=== PATIENT | female | born 1945 | race Caucasian/White ===

== ENCOUNTER 2017-04-21 06:51 | Inpatient (IN) | payer MEDICARE, SELFPAY ==
[2017-04-21] VITALS (27 sets, daily range): BP systolic 110–222; BP diastolic 42–124; PULSE 60–94; RESP 16–23; TEMP 36.2–36.9; O2SAT 92–100; BMI 29.2; BMI 31.2
--- NOTE | 2017-04-21 | IR_ITS ---
CARDIAC CATHETERIZATION DATE OF CATHETERIZATION:04/21/2017 9:30 AM PROCEDURES: 1. Left heart catheterization 2. Left ventriculogram 3. Selective coronary angiogram 4. Drug-eluting stent deployment to the proximal right coronary artery INDICATION FOR TEST: 1. Acute non-ST elevation myocardial infarction 2. Coronary artery disease Informed consent was obtained prior to the procedure. COMPLICATIONS: None Clinical history: Patient presents to the emergency department with abnormal EKG and positive troponins with ongoing chest pain. Because of the clinical presentation patient was taken to the cardiac catheter lab for rapid diagnostic angiography. Following the emergency department she received 180 mg of Brilinta along with 100 units per kilogram of heparin. By the time she arrived in the [facility] her ST elevation and resolved as did her chest pain. ESTIMATED BLOOD LOSS: Less than 10 ml. TECHNIQUE: One percent lidocaine used to anesthetize the right anterior aspect of the wrist. The right radial artery was accessed via the Seldinger technique. A 6 Salv[place] sheath was placed in the right radial artery. 2.5 mg of verapamil, 800 mcg of nitroglycerin were given through the arterial sheath. The trap catheter was also used to perform left heart catheterization left ventriculogram and selective coronary angiogram. An ACT measured 297 seconds. The defect was identified right coronary artery which is presumed to be the culprit for patient's acute coronary syndrome. Presumably the heparin caused disillusion of the thrombus in the interim from being in the emergency department to the [facility]. Because of this the guide catheter was used intubate the right coronary artery and the BMW wire was used to traverse the stenosis. A 2.5 x 22 mm resolute Hernandez stent was deployed at 17 rufina reducing the stenosis to 0%. The end of the procedure the sheath was removed good hemostasis was achieved using TR banding patient was transferred to the postop holding area in stable condition ANGIOGRAPHIC RESULTS: 1. The left main artery normal 2. The left anterior descending artery has proximal 20% stenoses immediately after the first septal tower supervisor. Prior to the first diagonal artery there is a concentric 30-40% stenosis with a mid vessel 30% stenosis and a 40% stenosis along a tortuous bend. 3. The circumflex artery is a large dominant vessel and has mild 5-10% proximal and mid vessel luminal irregularities 4. The right coronary artery is a nondominant yet still large vessel with a proximal hazy 60% stenosis presumed to be the culprit for the aborted this elevation myocardial infarction. There is a mid vessel 20-30% stenosis and a distal 30% stenoses 5. The ROSS ventriculogram reveals normal 65% 6. The left ventricular end-diastolic pressure 20 mmHg IMPRESSION: 1. Acute coronary syndrome with the presumptive lesion being the proximal right coronary artery 2. Successful stenting of the proximal right coronary artery culprit lesion reduced to 0% with 1 drug-eluting stent 3. Normal ejection fraction 4. Mildly elevated LVEDP PLAN: 1. Brilinta and aspirin for one year 2. LDL less than 55 3. Cardiac rehabilitation 4. Avoidance of tobacco products 5. Risk factor modification 6. Patient would likely benefit from low dose alprazolam to be used when necessary especially during the services for this patient's mother which is scheduled for tomorrow
--- NOTE | 2017-04-21 07:12 | XR_ITS ---
XR chest 2V HISTORY: ITS.REASON: chest pain ORDERING PHYSICIAN: PATIENT AGE: 71 years COMPARISON: 11/04/2010 FINDINGS: Cardiac size is upper limits of normal. No CHF. No lobar consolidation or collapse. No acute bony anomalies. IMPRESSION: Borderline cardiomegaly otherwise negative
[2017-04-21 07:22] LABS: Basophils # 0.1 K/mm3 (0-0.2); Basophils % 0.7 % (0.1-2.0); Eosinophils # 0.3 K/mm3 (0.0-0.4); Eosinophils % 3.6 % (0.1-12.0); Hematocrit 47.7 % (37.0-47.0); Hemoglobin 15.5 g/dL (12.2-16.2); Lymphocytes # 3.2 K/mm3 (0.7-4.5); Lymphocytes % 37.8 K/mm3 (10-50); Mean Corpuscular HGB Conc 32.6 g/dL (31.8-35.4); Mean Corpuscular Hemoglobin 28.3 pg (27.0-31.2); Mean Corpuscular Volume 86.9 fl (81-99); Mean Platelet Volume 7.9 fl (7.4-10.4); Monocytes # 0.5 K/mm3 (0.1-1.0); Monocytes % 6.2 % (1.7-9.3); Neutrophils # 4.4 K/mm3 (1.8-7.8); Neutrophils % 51.8 % (37.0-80.0); Platelet Count 422 K/mm3 (142-424); Red Blood Count 5.49 M/mm3 (4.20-5.40); Red Cell Distribution Width 12.6 % (11.5-17.5); White Blood Count 8.5 K/mm3 (4.8-10.8)
[2017-04-21 07:49] LABS: Anion Gap 13.2 mEq/L (5-15); Blood Urea Nitrogen 9 mg/dL (7-18); Carbon Dioxide 28 mmol/L (21.0-32.0); Chloride 100 mmol/L (98-107); Creatinine Clearance Estimated 55 mL/min (0-300); Creatinine,Serum 1.12 mg/dL (0.55-1.02); Estimated Glomerular Filt Rate 48 ml/min (>60); GFR (African American) 58 ML/MIN (>60); Glucose 126 mg/dL (74-106); Potassium 3.2 mmoL/L (3.5-5.1); Sodium 138 mmol/L (136-145)
--- NOTE | 2017-04-21 07:51 | PC.NURSE ---
INFORMED DR. CARTAGENA OF CRITICAL TROPONIN 1.95.
--- NOTE | 2017-04-21 07:52 | PC.NURSE ---
DR. CARTAGENA SPEAKING WITH DR. LOPEZ.
[2017-04-21 07:55] LABS: Troponin I 1.95 ng/ml (0.00-0.06)
--- NOTE | 2017-04-21 07:58 | PC.NURSE ---
[employer]OB RETENTION SPECIALIST STAFF NOTIFIED OF PT PER DR. LOPEZ REQUEST. PER DR. CARTAGENA PT TO STAY IN ER UNTIL DR. LOPEZ IS IN HOUSE.
--- NOTE | 2017-04-21 08:00 | PC.NURSE ---
CONTACTED PHARMACY R/T HEPARIN DOSING, ER ORDERED HEPARIN IV 100MG/KG ONE TIME. SPOKE WITH MIRACLE WHO STATED TO GIVE PT HEPARIN 7000 MG IV ONCE.
--- NOTE | 2017-04-21 08:01 | HMH.EDCP ---
ED Disposition Clinical Impression: Non-STEMI (non-ST elevated myocardial infarction) Disposition: Admitted As Inpatient Condition on Discharge: Good Referrals: Adrian Quintero MD [Primary Care Provider] - - Critical Care Critical Care Time: No Attestation: On 04/21/17, the high probability of a clinically significant, sudden or life threatening deterioration of the following system(s) required my full and direct attention, intervention and personal management. The time I documented below is in addition to time spent performing reported procedures but includes the following listed in this critical care notation. Medical Decision Making - Medical Records Medical records reviewed: Yes: I reviewed the patient's medical records. Vital Signs: 04/21/17 06:54 Temperature 97.9 F Temperature Source Oral Pulse Rate [Left Radial] 89 Respiratory Rate 18 Blood Pressure [Right Arm] 197/100 Blood Pressure Mean [Right Arm] 132 Blood Pressure Source [Right Arm] Automatic Cuff Blood Pressure Position [Right Arm] Sitting 02 Sat by Pulse Oximetry 97 Oxygen Delivery Method Room Air - Lab Data Lab results reviewed: Yes: I reviewed the patient's lab results. Lab Results 04/21/17 07:15: WBC 8.5, RBC 5.49 H, Hgb 15.5, Hct 47.7 H, MCV 86.9, MCH 28.3, MCHC 32.6, RDW 12.6, Plt Count 422, MPV 7.9, Neut % (Auto) 51.8, Lymph % (Auto) 37.8, [place] % (Auto) 6.2, Eos % (Auto) 3.6, Baso % (Auto) 0.7, Neut # (Auto) 4.4, Lymph # (Auto) 3.2, [place] # (Auto) 0.5, Eos # (Auto) 0.3, Baso # (Auto) 0.1 04/21/17 07:15: Sodium 138, Potassium 3.2 L, Chloride 100, Carbon Dioxide 28, Anion Gap 13.2, BUN 9, Creatinine 1.12 H, Estimated Creat Clear 55, Estimated GFR 48 L, Est GFR ( Amer) 58 L, Glucose 126 H, Troponin I 1.95 H Result diagrams: 04/21/17 07:15 04/21/17 07:15 Orders (Tests/Meds): ED MEDICATIONS Generic Name Dose Route Start Last Admin Trade Name Freq PRN Reason Stop Dose Admin Nitroglycerin 0.4 mg 04/21/17 07:11 Nitrostat 0.4mg Sl Tablet SL 04/22/17 07:12 [id number] PRN Chest Pain Discontinued Medications Generic Name Dose Route Start Last Admin Trade Name Dillon PRN Reason Stop Dose Admin Aspirin 324 mg 04/21/17 07:11 04/21/17 07:25 Aspirin 81mg Chewable Tablet PO 04/21/17 07:12 324 mg ONCE ONE Administration Heparin Sodium (Porcine) 7,000 unit 04/21/17 07:59 Heparin Sodium 5,000 Units/Ml Vial IV 04/21/17 08:00 ONCE ONE Ticagrelor 180 mg 04/21/17 07:59 Brilinta 90mg Tablet PO 04/21/17 08:00 ONCE ONE ORDERS Category Date Time Status XR chest 2V Stat Exams 04/21/17 07:12 Taken Cardiac Enzymes Stat Lab 04/21/17 07:25 Ordered ECG Request by /Francine Stat Y 04/21/17 07:12 Stop Req - Radiology Data #1 Image(s): Chest Image Reviewed: Yes I reviewed the patient's radiology image Preliminary Findings: Abnormal (cm) - ECG Data Tracing #1 I reviewed this ECG and interpreted as documented below: Ischemic changes: non-specific ST-T wave changes - Physician Consults Physician Consulted: liya Reason -: Admission - Avi Inquiry Pt receiving controlled substance: No Chest Pain HPI - General Chief Complaint: Chest Pain Stated Complaint: chest pain Time Seen by Provider: 04/21/17 08:01 Mode of Arrival: Ambulatory Source of Information: Patient, Spouse, Medical Record Limitations: No Limitations Description of Symptoms (Recalled from ER Triage Doc. by RN): chest pain and anxiety following in family - History of Present Illness HPI narrative: onset of chest pain with rad lt upper ext which started yesterday MD complaint: chest pain indicative of cardiac Onset (ago): day(s) Duration: constant Activity at onset: during rest Pain location: left chest Severity: moderate Quality: dull Relieving factors: nothing Exacerbating factors: nothing Risk Factors for CAD: Hypertension, Family Hx of CAD Treatments prior t
--- NOTE | 2017-04-21 08:05 | PC.NURSE ---
KALPANA BOUDREAUX SPOKE WITH DR. FORREST AT THIS TIME.
--- NOTE | 2017-04-21 08:05 | ED_ITS ---
ED Disposition Clinical Impression: Non-STEMI (non-ST elevated myocardial infarction) Disposition: Admitted As Inpatient Condition on Discharge: Good Referrals: Adrian Quintero MD [Primary Care Provider] - - Critical Care Critical Care Time: No Attestation: On 04/21/17, the high probability of a clinically significant, sudden or life threatening deterioration of the following system(s) required my full and direct attention, intervention and personal management. The time I documented below is in addition to time spent performing reported procedures but includes the following listed in this critical care notation. Medical Decision Making - Medical Records Medical records reviewed: Yes: I reviewed the patient's medical records. Vital Signs: 04/21/17 06:54 Temperature 97.9 F Temperature Source Oral Pulse Rate [Left Radial] 89 Respiratory Rate 18 Blood Pressure [Right Arm] 197/100 Blood Pressure Mean [Right Arm] 132 Blood Pressure Source [Right Arm] Automatic Cuff Blood Pressure Position [Right Arm] Sitting 02 Sat by Pulse Oximetry 97 Oxygen Delivery Method Room Air - Lab Data Lab results reviewed: Yes: I reviewed the patient's lab results. Lab Results 04/21/17 07:15: WBC 8.5, RBC 5.49 H, Hgb 15.5, Hct 47.7 H, MCV 86.9, MCH 28.3, MCHC 32.6, RDW 12.6, Plt Count 422, MPV 7.9, Neut % (Auto) 51.8, Lymph % (Auto) 37.8, [place] % (Auto) 6.2, Eos % (Auto) 3.6, Baso % (Auto) 0.7, Neut # (Auto) 4.4 , Lymph # (Auto) 3.2, [place] # (Auto) 0.5, Eos # (Auto) 0.3, Baso # (Auto) 0.1 04/21/17 07:15: Sodium 138, Potassium 3.2 L, Chloride 100, Carbon Dioxide 28, Anion Gap 13.2, BUN 9, Creatinine 1.12 H, Estimated Creat Clear 55, Estimated GFR 48 L, Est GFR ( Amer) 58 L, Glucose 126 H, Troponin I 1.95 H Result diagrams: 04/21/17 07:15 04/21/17 07:15 Orders (Tests/Meds): ED MEDICATIONS Generic Name Dose Route Start Last Admin Trade Name Freq PRN Reason Stop Dose Admin Nitroglycerin 0.4 mg 04/21/17 07:11 Nitrostat 0.4mg Sl Tablet SL 04/22/17 07:12 Q5MINP PRN Chest Pain Discontinued Medications Generic Name Dose Route Start Last Admin Trade Name Dillon PRN Reason Stop Dose Admin Aspirin 324 mg 04/21/17 07:11 04/21/17 07:25 Aspirin 81mg Chewable Tablet PO 04/21/17 07:12 324 mg ONCE ONE Administration Heparin Sodium (Porcine) 7,000 unit 04/21/17 07:59 Heparin Sodium 5,000 Units/Ml Vial IV 04/21/17 08:00 ONCE ONE Ticagrelor 180 mg 04/21/17 07:59 Brilinta 90mg Tablet PO 04/21/17 08:00 ONCE ONE ORDERS Category Date Time Status XR chest 2V Stat Exams 04/21/17 07:12 Taken Cardiac Enzymes Stat Lab 04/21/17 07:25 Ordered ECG Request by /Francine Stat Y 04/21/17 07:12 Stop Req - Radiology Data #1 Image(s): Chest Image Reviewed: Yes I reviewed the patient's radiology image Preliminary Findings: Abnormal (cm) - ECG Data Tracing #1 I reviewed this ECG and interpreted as documented below: Ischemic changes: non-specific ST-T wave changes - Physician Consults Physician Consulted: liya Reason -: Admission - Avi Inquiry Pt receiving controlled substance: No Chest Pain HPI - General Chief Comp
--- NOTE | 2017-04-21 08:09 | PC.NURSE ---
ROBERT ADAM AT BS
--- NOTE | 2017-04-21 08:22 | CA_ITS ---
PROCEDURE: 2-D M-mode and color Doppler study INDICATIONS FOR THE TEST: Chest painX COPD Heart Murmur Tobacco SmokingEX Palpitations Fatigue Syncope Edema HypertensionXDiabetes Mellitus Rheumatic Fever SOB PIKE Obesity HyperlipidemiaX Family History HD Additional History PATIENT INFORMATION HEIGHT: 63 WEIGHT:170 GENDER: Female B/P:110/70 2-D/M-MODE INTERPRETATION: 2-D MEASUREMENTS OBSERVED VALUES IN CMS Right Ventricular Dimension (RVDd) 1.2 Interventricular Septum (Thickness)(IVsd) 1.7 Left Ventricular Internal Dimensions(LVIDd) 4.6 Left Ventricular Posterior Wall (Thickness)(LVPWd) 1.6 Aortic Root 2.8 Aortic Cusp Separation 1.5 Left Atrial Dimensions (LAD) 3.8 2D 1. Left atrium is mildly enlarged, left ventricle is normal size, there is mild concentric left ventricular hypertrophy present, visually estimated ejection fraction approximately 40%, there is marked hypokinesis involving mid to distal septum, anterior, anteroapical and apical wall. 2. The right atrium and right ventricle are normal size and contractility. 3. The aortic valve is minimally thickened and fibrosed. 4. The mitral and tricuspid valve leaflets are minimally thickened. 5. The pulmonic valve is poorly visualized. 6. No significant pericardial effusion noted. DOPPLER INTERROGATION: Doppler interrogation of the aortic, mitral and tricuspid valve reveals presence of mild mitral and tricuspid regurgitation, tricuspid regurgitant jet velocity is insufficient for calculation of the right ventricular systolic pressure, diastolic parameters are inconclusive. CONCLUSION: 1. Mildly left atrium, normal left ventricular size, mild concentric left ventricular hypertrophy, visually estimated ejection fraction approximately 40% with multiple segmental wall motion abnormality described above, diastolic parameters are inconclusive. 2. Mild mitral and tricuspid regurgitation 3. No significant pericardial effusion noted.
[2017-04-21 08:30] LABS: CKMB Relative Index 5.1 U/L (0-4.0); Creatine Kinase 120 U/L (26-192); Creatine Kinase MB 6.1 mg/ml (0.0-3.6)
--- NOTE | 2017-04-21 08:48 | HMH.CARDCON2 ---
History of Present Illness Consult date: 04/21/17 Consult reason: chest pain Chief complaint: left arm and shoulder pain History of present illness: 71-year-old white history of hypertension presents to the emergency department with 2 days of recurrent left shoulder and left arm pain since her mother's passing on Thursday. Patient denies any previous cardiac symptoms or problems. She has had long-standing hypertension and long-standing smoking use until 2 years ago. Initial EKG is sinus rhythm without acute ST elevation but elevated troponin noted. Cardiology consulted for non-ST elevation AK. Patient denies any chest pain but has some possible shortness of breath with exertion and exacerbation of her left arm and shoulder discomfort. Currently she is pain-free. Review of Systems - *Cardiovascular Reports shortness of breath with activity, Reports radiating jaw, neck or arm pain - *Respiratory Reports shortness of breath with activity - *Neurologic Denies seizure-like activity [facility] History Medical History: Denies:: Cancer, Diabetes Mellitus Type 1, Diabetes Mellitus Type 2, MRSA Laterality Cases: Bilateral: Tonsillectomy Amputation: No Fractures: No - *Social History Educational Level: Attended High School Smoking Status: Former smoker Alcohol Intake: never - Psychiatric History Expresses thoughts of harming self/others: None Suicide Plan Description: No Plan Meds Home Medications Medication Instructions Recorded Confirmed Type chlordiazePOXIDE HCl [Librium 10mg 1 cap PO BIDP PRN 04/21/17 04/21/17 History Capsule] Allergies Allergy/AdvReac Type Severity Reaction Status Date / Time From WELLBUTRIN Allergy Intermediate I-RASH/ITCH Uncoded 03/24/17 14:29 ING Exam Vital signs and Labs for Last 24 Hours: Temp Pulse Resp BP Pulse Ox 97.9 F 74 18 200/120 98 04/21/17 06:54 04/21/17 08:26 04/21/17 08:26 04/21/17 08:26 04/21/17 08:26 Laboratory Results - last 24 hr 04/21/17 07:15: WBC 8.5, RBC 5.49 H, Hgb 15.5, Hct 47.7 H, MCV 86.9, MCH 28.3, MCHC 32.6, RDW 12.6, Plt Count 422, MPV 7.9, Neut % (Auto) 51.8, Lymph % (Auto) 37.8, [place] % (Auto) 6.2, Eos % (Auto) 3.6, Baso % (Auto) 0.7, Neut # (Auto) 4.4, Lymph # (Auto) 3.2, [place] # (Auto) 0.5, Eos # (Auto) 0.3, Baso # (Auto) 0.1 04/21/17 07:15: Sodium 138, Potassium 3.2 L, Chloride 100, Carbon Dioxide 28, Anion Gap 13.2, BUN 9, Creatinine 1.12 H, Estimated Creat Clear 55, Estimated GFR 48 L, Est GFR ( Amer) 58 L, Glucose 126 H, Total Creatine Kinase 120, CK-MB (CK-2) 6.1 H, CK-MB (CK-2) Rel Index 5.1 H, Troponin I 1.95 H I & O for Last 24 hours: Intake & Output 04/18/17 04/19/17 04/20/17 04/21/17 11:59 11:59 11:59 11:59 Weight 170 lb - *Routine Neck Exam Absent: JVD, carotid bruit - *Routine Respiratory Exam Present: CTA bilaterally - *Routine Cardiovascular Exam Present: RRR. Absent: murmur, gallop, rubs - *Routine Extremities Exam Absent: edema - *Routine Neurological Exam Present: moving all extremities Results 04/21/17 07:15 04/21/17 07:15 Cardiac Enzymes 04/21/17 Range/Units 07:15 CK-MB (CK-2) 6.1 H (0.0-3.6) mg/ml Troponin I 1.95 H (0.00-0.06) ng/ml CBC 04/21/17 Range/Units 07:15 WBC 8.5 (4.8-10.8) K/mm3 RBC 5.49 H (4.20-5.40) M/mm3 Hgb 15.5 (12.2-16.2) g/dL Hct 47.7 H (37.0-47.0) % Plt Count 422 (142-424) K/mm3 Neut # (Auto) 4.4 (1.8-7.8) K/mm3 Lymph # (Auto) 3.2 (0.7-4.5) K/mm3 [place] # (Auto) 0.5 (0.1-1.0) K/mm3 Eos # (Auto) 0.3 (0.0-0.4) K/mm3 Baso # (Auto) 0.1 (0-0.2) K/mm3 Comprehensive Metabolic Panel 04/21/17 Range/Units 07:15 Sodium 138 (136-145) mmol/L Potassium 3.2 L (3.5-5.1) mmoL/L Chloride 100 (98-107) mmol/L Carbon Dioxide 28 (21.0-32.0) mmol/L BUN 9 (7-18) mg/dL Creatinine 1.12 H (0.55-1.02) mg/dL Glucose 126 H (74-106) mg/dL Intake and Output 04/20/17
--- NOTE | 2017-04-21 08:51 | P.CONS_ITS ---
History of Present Illness Consult date: 04/21/17 Consult reason: chest pain Chief complaint: left arm and shoulder pain History of present illness: 71-year-old white history of hypertension presents to the emergency department with 2 days of recurrent left shoulder and left arm pain since her mother's passing on Thursday. Patient denies any previous cardiac symptoms or problems. She has had long-standing hypertension and long-standing smoking use until 2 years ago. Initial EKG is sinus rhythm without acute ST elevation but elevated troponin noted. Cardiology consulted for non-ST elevation PR. Patient denies any chest pain but has some possible shortness of breath with exertion and exacerbation of her left arm and shoulder discomfort. Currently she is pain- free. Review of Systems - *Cardiovascular Reports shortness of breath with activity, Reports radiating jaw, neck or arm pain - *Respiratory Reports shortness of breath with activity - *Neurologic Denies seizure-like activity [facility] History Medical History: Denies:: Cancer, Diabetes Mellitus Type 1, Diabetes Mellitus Type 2, MRSA Laterality Cases: Bilateral: Tonsillectomy Amputation: No Fractures: No - *Social History Educational Level: Attended High School Smoking Status: Former smoker Alcohol Intake: never - Psychiatric History Expresses thoughts of harming self/others: None Suicide Plan Description: No Plan Meds Home Medications Medication Instructions Recorded Confirmed Type chlordiazePOXIDE HCl [Librium 10mg 1 cap PO BIDP PRN 04/21/17 04/21/17 History Capsule] Allergies Allergy/AdvReac Type Severity Reaction Status Date / Time From WELLBUTRIN Allergy Intermediate I-RASH/ITCH Uncoded 03/24/17 14:29 ING Exam Vital signs and Labs for Last 24 Hours: Temp Pulse Resp BP Pulse Ox 97.9 F 74 18 200/120 98 04/21/17 06:54 04/21/17 08:26 04/21/17 08:26 04/21/17 08:26 04/21/17 08:26 Laboratory Results - last 24 hr 04/21/17 07:15: WBC 8.5, RBC 5.49 H, Hgb 15.5, Hct 47.7 H, MCV 86.9, MCH 28.3, MCHC 32.6, RDW 12.6, Plt Count 422, MPV 7.9, Neut % (Auto) 51.8, Lymph % (Auto) 37.8, [place] % (Auto) 6.2, Eos % (Auto) 3.6, Baso % (Auto) 0.7, Neut # (Auto) 4.4 , Lymph # (Auto) 3.2, [place] # (Auto) 0.5, Eos # (Auto) 0.3, Baso # (Auto) 0.1 04/21/17 07:15: Sodium 138, Potassium 3.2 L, Chloride 100, Carbon Dioxide 28, Anion Gap 13.2, BUN 9, Creatinine 1.12 H, Estimated Creat Clear 55, Estimated GFR 48 L, Est GFR ( Amer) 58 L, Glucose 126 H, Total Creatine Kinase 120 , CK-MB (CK-2) 6.1 H, CK-MB (CK-2) Rel Index 5.1 H, Troponin I 1.95 H I & O for Last 24 hours: Intake & Output 04/18/17 04/19/17 04/20/17 04/21/17 11:59 11:59 11:59 11:59 Weight 170 lb - *Routine Neck Exam Absent: JVD, carotid bruit - *Routine Respiratory Exam Present: CTA bilaterally - *Routine Cardiovascular Exam Present: RRR. Absent: murmur, gallop, rubs - *Routine Extremities Exam Absent: edema - *Routine Neurological Exam Present: moving all extremities Results 04/21/17 07:15 04/21/17 07:15 Cardiac Enzymes 04/21/17 Range/Units 07:15 CK-MB (CK-2) 6.1 H (0.0-3.6) mg/ml Troponin I 1.95 H (0.00-0.06) ng/ml CBC 04/21/17 Range/Units 07:15 WBC
--- NOTE | 2017-04-21 08:59 | PC.NURSE ---
PT TO OBIEE OBIA [employer]UTION ARCHITECT AT THIS TIME.
[2017-04-21 12:44] LABS: Chol/HDL Ratio 3.5 (1-3.5); Cholesterol 170 mg/dL (140-200); HDL Cholesterol 48 mg/dL (29-89); LDL Cholesterol 89 mg/dL (0-130); Triglycerides 164 mg/dL (30-200); VLDL Cholesterol 33 mg/dL (0-40)
--- NOTE | 2017-04-21 13:19 | HMH.HP ---
*Admission Date: 04/21/17 *Chief complaint: Shooting left arm pain *History of present illness: 71 yr old female presented to the ED this morning after waking up early with shooting pains in her left arm. States that she first noticed this pain about 24 hours prior when she had gone to a local longterm at the time of her mother's . Initially pain resolved but when she woke this morning with similar pain it was more severe and not relieved with tylenol or her nerve pill so she presented to the ED. Troponins and blood pressure elevated, treated with ASA and loading dose of Brilinta and cardiology consult obtained. 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 She is seen now in the ICU post-cath. Up in bed eating lunch and denies pain. [facility] History Medical History: Reports:: Hyperlipidemia, Hypertension Denies:: Cancer, Diabetes Mellitus Type 1, Diabetes Mellitus Type 2, MRSA Other Medical History: Reports: Hypothyroidism Laterality Cases: Bilateral: Tonsillectomy Amputation: No Fractures: No - *Social History Educational Level: Attended High School Smoking Status: Former smoker Alcohol Intake: never Household Members: spouse - Psychiatric History Expresses thoughts of harming self/others: None Suicide Plan Description: No Plan *Family Hx:: Hypertension Comment: Dementia Review of Systems - Review of Systems Review of systems:: pertinent systems reviewed and negative unless documented below - Constitutional Reports malaise - *Cardiovascular Reports radiating jaw, neck or arm pain, Denies chest pain, Denies shortness of breath when lying down, Denies foot swelling - *Neurologic Denies seizure-like activity Meds Home Medications Medication Instructions Recorded Confirmed Type Fluticasone Propionate [Flovent 50 mcg IH DAILY 04/21/17 04/21/17 History Diskus] Levothyroxine Sodium 75 mcg PO DAILY 04/21/17 04/21/17 History [Levothyroxine 75mcg (0.075mg) Tab] Rosuvastatin Calcium [Crestor] 5 mg PO TID 04/21/17 04/21/17 History Triamterene/Hydrochlorothiazid 1 each PO DAILY 04/21/17 04/21/17 History [Triamterene-Hctz 75-50 mg Tab] Venlafaxine HCl [Venlafaxine HCl 150 mg PO DAILY 04/21/17 04/21/17 History ER] Verapamil HCl [Verapamil ER] 240 mg PO DAILY 04/21/17 04/21/17 History chlordiazePOXIDE HCl [Librium 10mg 1 cap PO BIDP PRN 04/21/17 04/21/17 History Capsule] Allergies Allergy/AdvReac Type Severity Reaction Status Date / Time From WELLBUTRIN Allergy Intermediate I-RASH/ITCH Uncoded 03/24/17 14:29 ING Exam Vital signs and Labs for Last 24 Hours: Temp Pulse Resp BP Pulse Ox 98.0 F 60 18 131/78 98 04/21/17 08:59 04/21/17 11:35 04/21/17 11:35 04/21/17 11:35 04/21/17 11:35 I & O for Last 24 hours: Intake & Output 04/19/17 04/20/17 04/21/17 04/22/17 11:59 11:59 11:59 11:59 Weight 182 lb Narrative: Pleasant female, eating lunch and in no acute distress. Heart has RRR, no murmurs, rubs or gallops. Lungs are clear. Abdomen soft, NT/ND, BS present. Neck is supple, membranes moist. No edema. 2+ pedal pulses and normal cap refill. Alert and oriented x 3, normal speech and content. H&P: Result - Labs Labs: Laboratory Tests 04/21/17 04/21/17 04/21/17 07:15 07:15 07:15 WBC 8.5 RBC 5.49 H Hgb 15.5 Hct 47.7 H Plt Count 422 Potassium 3.2 L Creatinine 1.12 H Troponin I 1.95 H LDL Cholesterol 89 Assessment and Plan (1) Non-STEMI (non-ST elevated myocardial infarction) Current visit: Yes Status: Acute Category: Medical Code(s): I21.4 - Non-ST elevation (NSTEMI) myocardial infarction (2) Ex-smoker for more than 1 year Current visit: Yes Status: Acute Category: Social Hx Code(s): Z87.891 - Personal history of nicotine dependence (3) Hypertension Current visit: Yes Status: Acute Category: Medical Code(s): I10 - Es
--- NOTE | 2017-04-21 13:22 | P.HP_ITS ---
*Admission Date: 04/21/17 *Chief complaint: Shooting left arm pain *History of present illness: 71 yr old female presented to the ED this morning after waking up early with shooting pains in her left arm. States that she first noticed this pain about 24 hours prior when she had gone to a local group home at the time of her mother's . Initially pain resolved but when she woke this morning with similar pain it was more severe and not relieved with tylenol or her nerve pill so she presented to the ED. Troponins and blood pressure elevated, treated with ASA and loading dose of Brilinta and cardiology consult obtained. 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 She is seen now in the ICU post-cath. Up in bed eating lunch and denies pain. [facility] History Medical History: Reports:: Hyperlipidemia, Hypertension Denies:: Cancer, Diabetes Mellitus Type 1, Diabetes Mellitus Type 2, MRSA Other Medical History: Reports: Hypothyroidism Laterality Cases: Bilateral: Tonsillectomy Amputation: No Fractures: No - *Social History Educational Level: Attended High School Smoking Status: Former smoker Alcohol Intake: never Household Members: spouse - Psychiatric History Expresses thoughts of harming self/others: None Suicide Plan Description: No Plan *Family Hx:: Hypertension Comment: Dementia Review of Systems - Review of Systems Review of systems:: pertinent systems reviewed and negative unless documented below - Constitutional Reports malaise - *Cardiovascular Reports radiating jaw, neck or arm pain, Denies chest pain, Denies shortness of breath when lying down, Denies foot swelling - *Neurologic Denies seizure-like activity Meds Home Medications Medication Instructions Recorded Confirmed Type Fluticasone Propionate [Flovent 50 mcg IH DAILY 04/21/17 04/21/17 History Diskus] Levothyroxine Sodium 75 mcg PO DAILY 04/21/17 04/21/17 History [Levothyroxine 75mcg (0.075mg) Tab] Rosuvastatin Calcium [Crestor] 5 mg PO TID 04/21/17 04/21/17 History Triamterene/Hydrochlorothiazid 1 each PO DAILY 04/21/17 04/21/17 History [Triamterene-Hctz 75-50 mg Tab] Venlafaxine HCl [Venlafaxine HCl 150 mg PO DAILY 04/21/17 04/21/17 History ER] Verapamil HCl [Verapamil ER] 240 mg PO DAILY 04/21/17 04/21/17 History chlordiazePOXIDE HCl [Librium 10mg 1 cap PO BIDP PRN 04/21/17 04/21/17 History Capsule] Allergies Allergy/AdvReac Type Severity Reaction Status Date / Time From WELLBUTRIN Allergy Intermediate I-RASH/ITCH Uncoded 03/24/17 14:29 ING Exam Vital signs and Labs for Last 24 Hours: Temp Pulse Resp BP Pulse Ox 98.0 F 60 18 131/78 98 04/21/17 08:59 04/21/17 11:35 04/21/17 11:35 04/21/17 11:35 04/21/17 11:35 I & O for Last 24 hours: Intake & Output 04/19/17 04/20/17 04/21/17 04/22/17 11:59 11:59 11:59 11:59 Weight 182 lb Narrative: Pleasant female, eating lunch and in no acute distress. Heart has RRR, no murmurs, rubs or gallops. Lungs are clear. Abdomen soft, NT/ND, BS present. Neck is supple, membranes moist. No edema. 2+ pedal pulses and normal cap refill. Alert and oriented x 3, normal speech and content. H&P: Result - Labs Labs: Laboratory Tests 04/21/17 04/21/17 04/21/17
--- NOTE | 2017-04-21 13:52 | P.CONPHA_ITS ---
[facility] Pharmacy VTE Monitoring - Patient Demographics Admission date: 04/21/17 Report Date: 04/21/17 Time: 13:51 Allergies/Adverse Reactions: From WELLBUTRIN Allergy (Intermediate, Uncoded 03/24/17 14:29) I-RASH/ITCHING Height: 1.63 m Weight: 82.554 kg Patient Problems: Current Active Problems Non-STEMI (non-ST elevated myocardial infarction) (Acute) Hypertension (Acute) Ex-smoker for more than 1 year (Acute) - VTE Risk Labs: VTE Related Lab Results Hgb 15.5 g/dL (12.2-16.2) 04/21/17 07:15 Hct 47.7 % (37.0-47.0) H 04/21/17 07:15 Plt Count 422 K/mm3 (142-424) 04/21/17 07:15 BUN 9 mg/dL (7-18) 04/21/17 07:15 Creatinine 1.12 mg/dL (0.55-1.02) H 04/21/17 07:15 Estimated Creat Clear 55 mL/min (0-300) 04/21/17 07:15 - Prophylaxis VTE Prophylaxis Ordered?: Yes Types of VTE Prophylaxis: TEDS Knee High Location of Applied Device: Bilateral Lower Extremeties - VTE Diagnosis Confirmed Treatment or plan recommended: Continue Current Treatment
--- NOTE | 2017-04-21 18:55 | PC.NURSE ---
PATIENT CAME UP FROM EXECUTIVE VP AT 1200. NO COMPLAINTS AT THIS TIME. TRACELET ON AT THIS TIME. NORMAL ASSESSMENT. BP HAS BEEN HIGH AT TIMES. TRACELET REMOVED ACCORDING TO PROTOCOL. PLACED TELFA AND TEGADERM. NO SIGNS OF BLEEDING AND HEMATOMA
[2017-04-22] VITALS (7 sets, daily range): BP systolic 138–172; BP diastolic 59–76; PULSE 60–73; RESP 16–20; TEMP 36.7–36.8; O2SAT 95–99
--- NOTE | 2017-04-22 02:20 | PC.NURSE ---
PT IS A&OX3. HE IS S/P HEART CATH WITH 1 STENT. RIGHT RADIAL DSG IS C/D/I. LUNG SOUNDS CTA. NORMAL BOWEL SOUNDS. CAPILLARY REFILL <3. AMBULATING INDEPENDENTLY TO THE BATHROOM. POSITIVE RADIAL AND PEDAL PULSES. DENIES PAIN.
[2017-04-22 05:41] LABS: Anion Gap 8.3 mEq/L (5-15); Blood Urea Nitrogen 9 mg/dL (7-18); Carbon Dioxide 29 mmol/L (21.0-32.0); Chloride 103 mmol/L (98-107); Creatinine Clearance Estimated 66 mL/min (0-300); Creatinine,Serum 0.84 mg/dL (0.55-1.02); Estimated Glomerular Filt Rate 67 ml/min (>60); GFR (African American) 81 ML/MIN (>60); Glucose 106 mg/dL (74-106); Potassium 3.3 mmoL/L (3.5-5.1); Sodium 137 mmol/L (136-145)
[2017-04-22 05:42] LABS: Basophils # 0.1 K/mm3 (0-0.2); Basophils % 0.7 % (0.1-2.0); Eosinophils # 0.4 K/mm3 (0.0-0.4); Eosinophils % 4.1 % (0.1-12.0); Hematocrit 43.4 % (37.0-47.0); Hemoglobin 14.1 g/dL (12.2-16.2); Lymphocytes % 32.4 K/mm3 (10-50); Mean Corpuscular HGB Conc 32.5 g/dL (31.8-35.4); Mean Corpuscular Hemoglobin 28.2 pg (27.0-31.2); Mean Corpuscular Volume 86.7 fl (81-99); Mean Platelet Volume 7.3 fl (7.4-10.4); Monocytes # 0.6 K/mm3 (0.1-1.0); Monocytes % 6.3 % (1.7-9.3); Neutrophils # 5.2 K/mm3 (1.8-7.8); Neutrophils % 56.4 % (37.0-80.0); Platelet Count 349 K/mm3 (142-424); Red Blood Count 5.01 M/mm3 (4.20-5.40); Red Cell Distribution Width 12.7 % (11.5-17.5); White Blood Count 9.2 K/mm3 (4.8-10.8)
[2017-04-22 05:49] LABS: Chol/HDL Ratio 3.7 (1-3.5); Cholesterol 146 mg/dL (140-200); HDL Cholesterol 39 mg/dL (29-89); LDL Cholesterol 73 mg/dL (0-130); Triglycerides 170 mg/dL (30-200); VLDL Cholesterol 34 mg/dL (0-40)
--- NOTE | 2017-04-22 07:06 | PC.NURSE ---
REPORT GIVEN TO SATYA RICE RN
--- NOTE | 2017-04-22 07:44 | HMH.DCSUM ---
General - General Admission date: 04/21/17 Discharge date: 04/22/17 HPI HPI: 71 yr old female presented to the ED this morning after waking up early with shooting pains in her left arm. States that she first noticed this pain about 24 hours prior when she had gone to a local fdc at the time of her mother's . Initially pain resolved but when she woke this morning with similar pain it was more severe and not relieved with tylenol or her nerve pill so she presented to the ED. Troponins and blood pressure elevated, treated with ASA and loading dose of Brilinta and cardiology consult obtained. 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 She is seen now in the ICU post-cath. Up in bed eating lunch and denies pain. Objective Vital signs: Temp Pulse Resp BP Pulse Ox 98.0 F 68 16 167/68 96 04/22/17 04:00 04/22/17 06:00 04/22/17 06:00 04/22/17 06:00 04/22/17 06:00 Narrative: This morning on the morning of discharge patient is pleasant, talkative, alert, oriented ?3. Eating breakfast well. Heart rate regular without murmurs, no carotid bruit. Lungs are clear, abdomen soft, no peripheral edema. Hospital Course Hospital Course: Patient had been admitted to the hospital yesterday. Subjective the left heart cath because of myocardial infarction. 60% RCA lesion noted and stented. Please see cardiology report for details. She spent the night in the intensive care unit without pain. No breathing problems, this morning exam is normalized. She will be discharged home as noted below. Results Labs on day of discharge: Labs from last 24 hours 04/22/17 04/22/17 04/22/17 05:20 05:20 05:20 WBC 9.2 RBC 5.01 Hgb 14.1 Hct 43.4 MCV 86.7 MCH 28.2 MCHC 32.5 RDW 12.7 Plt Count 349 MPV 7.3 L Neut % (Auto) 56.4 Lymph % (Auto) 32.4 [place] % (Auto) 6.3 Eos % (Auto) 4.1 Baso % (Auto) 0.7 Neut # (Auto) 5.2 Lymph # (Auto) 3.0 [place] # (Auto) 0.6 Eos # (Auto) 0.4 Baso # (Auto) 0.1 Sodium 137 Potassium 3.3 L Chloride 103 Carbon Dioxide 29 Anion Gap 8.3 BUN 9 Creatinine 0.84 D Estimated Creat Clear 66 Estimated GFR 67 Est GFR ( Amer) 81 D Glucose 106 Triglycerides 170 Cholesterol 146 LDL Cholesterol 73 VLDL Cholesterol 34 HDL Cholesterol 39 Cholesterol/HDL Ratio 3.7 H DS: Diagnosis - Discharge Diagnosis (1) Ex-smoker for more than 1 year Status: Acute (2) Hypertension Status: Acute (3) Non-STEMI (non-ST elevated myocardial infarction) Status: Acute Meds Home Medications Medication Instructions Recorded Confirmed Type Fluticasone Propionate [Flovent 50 mcg IH DAILY 04/21/17 04/21/17 History Diskus] Levothyroxine Sodium 75 mcg PO DAILY 04/21/17 04/21/17 History [Levothyroxine 75mcg (0.075mg) Tab] Rosuvastatin Calcium [Crestor] 5 mg PO MOWEFR 04/21/17 04/21/17 History Triamterene/Hydrochlorothiazid 1 each PO DAILY 04/21/17 04/21/17 History [Triamterene-Hctz 75-50 mg Tab] Venlafaxine HCl [Venlafaxine HCl 150 mg PO DAILY 04/21/17 04/21/17 History ER] Verapamil HCl [Verapamil ER] 240 mg PO DAILY 04/21/17 04/21/17 History chlordiazePOXIDE HCl [Librium 10mg 1 cap PO BIDP PRN 04/21/17 04/21/17 History Capsule] Allergies Allergy/AdvReac Type Severity Reaction Status Date / Time From WELLBUTRIN Allergy Intermediate I-RASH/ITCH Uncoded 03/24/17 14:29 ING Discharge Plan - Patient Discharge Instructions ACTIVITY: No heavy lifting DIET: low fat, low cholesterol - Follow up Plan Follow up with: Adrian Quintero MD [Primary Care Provider] - 2 weeks Jonh Lind MD [Staff Physician] - 1 week Disposition: Home, Self-[facility]ci Medications: Home Medications Medication Instructions Recorded Confirmed Type Fluticasone Propionate [Floven
--- NOTE | 2017-04-22 07:49 | P.DS_ITS ---
General - General Admission date: 04/21/17 Discharge date: 04/22/17 HPI HPI: 71 yr old female presented to the ED this morning after waking up early with shooting pains in her left arm. States that she first noticed this pain about 24 hours prior when she had gone to a local shelter at the time of her mother's . Initially pain resolved but when she woke this morning with similar pain it was more severe and not relieved with tylenol or her nerve pill so she presented to the ED. Troponins and blood pressure elevated, treated with ASA and loading dose of Brilinta and cardiology consult obtained. 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 She is seen now in the ICU post-cath. Up in bed eating lunch and denies pain. Objective Vital signs: Temp Pulse Resp BP Pulse Ox 98.0 F 68 16 167/68 96 04/22/17 04:00 04/22/17 06:00 04/22/17 06:00 04/22/17 06:00 04/22/17 06:00 Narrative: This morning on the morning of discharge patient is pleasant, talkative, alert, oriented ?3. Eating breakfast well. Heart rate regular without murmurs, no carotid bruit. Lungs are clear, abdomen soft, no peripheral edema. Hospital Course Hospital Course: Patient had been admitted to the hospital yesterday. Subjective the left heart cath because of myocardial infarction. 60% RCA lesion noted and stented. Please see cardiology report for details. She spent the night in the intensive care unit without pain. No breathing problems, this morning exam is normalized. She will be discharged home as noted below. Results Labs on day of discharge: Labs from last 24 hours 04/22/17 04/22/17 04/22/17 05:20 05:20 05:20 WBC 9.2 RBC 5.01 Hgb 14.1 Hct 43.4 MCV 86.7 MCH 28.2 MCHC 32.5 RDW 12.7 Plt Count 349 MPV 7.3 L Neut % (Auto) 56.4 Lymph % (Auto) 32.4 [place] % (Auto) 6.3 Eos % (Auto) 4.1 Baso % (Auto) 0.7 Neut # (Auto) 5.2 Lymph # (Auto) 3.0 [place] # (Auto) 0.6 Eos # (Auto) 0.4 Baso # (Auto) 0.1 Sodium 137 Potassium 3.3 L Chloride 103 Carbon Dioxide 29 Anion Gap 8.3 BUN 9 Creatinine 0.84 D Estimated Creat Clear 66 Estimated GFR 67 Est GFR ( Amer) 81 D Glucose 106 Triglycerides 170 Cholesterol 146 LDL Cholesterol 73 VLDL Cholesterol 34 HDL Cholesterol 39 Cholesterol/HDL Ratio 3.7 H DS: Diagnosis - Discharge Diagnosis (1) Ex-smoker for more than 1 year Status: Acute (2) Hypertension Status: Acute (3) Non-STEMI (non-ST elevated myocardial infarction) Status: Acute Meds Home Medications Medication Instructions Recorded Confirmed Type Fluticasone Propionate [Flovent 50 mcg IH DAILY 04/21/17 04/21/17 History Diskus] Levothyroxine Sodium 75 mcg PO DAILY 04/21/17 04/21/17 History [Levothyroxine 75mcg (0.075mg) Tab] Rosuvastatin Calcium [Crestor] 5 mg PO MOWEFR 04/21/17 04/21/17 History Triamterene/Hydrochlorothiazid 1 each PO DAILY 04/21/17 04/21/17 History [
--- NOTE | 2017-04-23 10:47 | PC.NURSE ---
post procedure call made, pt states she is doing fine, just tired and trying to prepare for mother's . pt denies any questions/concerns at this time
[2017-05-14 08:37] LABS: CATHL Activated Clotting Time 297 SEC (74-125)
== END 2017-04-22 09:22 | disposition home or self-care (01) | DRG 247 ==
LOC: ER 08:17 → CATHLAB 08:24 → ICU 12:02
PROVIDERS: Internal Medicine; Nurse Practitioner Family; Admitting Provider Internal Medicine Adolescent Medicine; Emergency Provider Emergency Medicine; PCP Internal Medicine Adolescent Medicine; Visit Provider Internal Medicine Adolescent Medicine
PROC: 4A023N7 Measurement of Cardiac Sampling and Pressure, Left Heart, Percutaneous Approach (ICD-10-PCS; principal; 2017-04-21 10:45)
DX: I10 Essential (primary) hypertension (principal); I21.4 Non-ST elevation (NSTEMI) myocardial infarction; R07.9 Chest pain, unspecified; I25.10 Atherosclerotic heart disease of native coronary artery without angina pectoris; Z87.891 Personal history of nicotine dependence
CPT/HCPCS: 36415; 71046; 80048; 80061; 82550; 82553; 84484; 85025; 85347; 92928; 93005; 93041; 93306; 93458; 96374; 99152; 99153; 99284; C1725; C1769; C1876; C9600; J1644; Q9967

== ENCOUNTER 2017-04-28 17:40 | Emergency (ER) | payer MEDICARE, SELFPAY ==
[2017-04-28 17:41] VITALS: BP 132/82; PULSE 72; RESP 18; TEMP 36.8; O2SAT 100; BMI 30.9
--- NOTE | 2017-04-28 17:57 | XR_ITS ---
XR chest portable HISTORY: ITS.REASON: CHEST PAIN ORDERING PHYSICIAN: Milly Aleman MD PATIENT AGE: 71 years COMPARISON: 04/21/2017 FINDINGS: There is mild cardiomegaly without failure. Atherosclerotic calcification involves the aorta.. The lungs are clear without infiltrates, suspicious nodules, or pleural effusions. No acute bony abnormalities. IMPRESSION: Cardiomegaly otherwise negative
--- NOTE | 2017-04-28 18:05 | HMH.EDCP ---
ED Disposition Clinical Impression: Atypical chest pain, CAD (coronary artery disease), Leucocytosis, Hypokalemia, Arthritis Disposition: Home, Self-Care Condition on Discharge: Fair Instructions: DI for Neck Pain Additional Instructions: 1- reassurance. 2- continue current medications. 3- see Dr. Lind in AM as scheduled. 4- see dr High for your shoulder pain. 5- to return if needed for any new sx. Referrals: Jonh Lind MD [Staff Physician] - Adrian Quintero MD [Primary Care Provider] - - Critical Care Critical Care Time: No Attestation: On , the high probability of a clinically significant, sudden or life threatening deterioration of the following system(s) required my full and direct attention, intervention and personal management. The time I documented below is in addition to time spent performing reported procedures but includes the following listed in this critical care notation. Medical Decision Making - Medical Records Medical records reviewed: Yes: I reviewed the patient's medical records. Vital Signs: 04/28/17 17:41 Temperature 98.2 F Temperature Source Oral Pulse Rate [Left Radial] 72 Respiratory Rate 18 Blood Pressure [Right Arm] 132/82 Blood Pressure Mean [Right Arm] 98 Blood Pressure Source [Right Arm] Automatic Cuff Blood Pressure Position [Right Arm] Sitting 02 Sat by Pulse Oximetry 100 Oxygen Delivery Method Room Air - Lab Data Lab results reviewed: Yes: I reviewed the patient's lab results. Lab Results 04/28/17 17:58: Sodium 129 L, Potassium 3.4 L, Chloride 92 L, Carbon Dioxide 28, Anion Gap 12.4, BUN 14, Creatinine 0.92, Estimated Creat Clear 66, Estimated GFR 60, Est GFR ( Amer) 73, Glucose 111 H, Calcium 10.0, Total Bilirubin 0.5, AST 29, ALT 42, Alkaline Phosphatase 94, Total Creatine Kinase 63, CK-MB (CK-2) 1.3 D, CK-MB (CK-2) Rel Index 2.1, Troponin I 0.03, Total Protein 8.5 H, Albumin 4.3, Globulin 4.2 H, Albumin/Globulin Ratio 1.0 L 04/28/17 17:58: WBC 14.7 H, RBC 5.69 H, Hgb 16.5 H, Hct 48.3 H, MCV 84.8, MCH 28.9, MCHC 34.1, RDW 12.5, Plt Count 452 H, MPV 7.4, Neut % (Auto) 68.3, Lymph % (Auto) 22.1, [place] % (Auto) 6.2, Eos % (Auto) 2.7, Baso % (Auto) 0.6, Neut # (Auto) 10.0 H, Lymph # (Auto) 3.3, [place] # (Auto) 0.9, Eos # (Auto) 0.4, Baso # (Auto) 0.1 04/28/17 17:58: D-Dimer 185 04/28/17 17:58: B-Natriuretic Peptide 22 04/28/17 17:58: Magnesium 2.3 H Result diagrams: 04/28/17 17:58 04/28/17 17:58 Orders (Tests/Meds): ED MEDICATIONS Discontinued Medications Generic Name Dose Route Start Last Admin Trade Name Freq PRN Reason Stop Dose Admin Potassium Chloride 40 meq 04/28/17 19:27 04/28/17 19:42 Klor-Con 20meq Tablet PO 04/28/17 19:28 40 meq ONCE ONE Administration ORDERS Category Date Time Status Troponin I Stat Lab 04/28/17 19:36 Received - Radiology Data #1 Image(s): Chest Image Reviewed: Yes I reviewed the patient's radiology image Preliminary Findings: Abnormal Chronic changes no acute findings. - ECG Data Tracing #2 Normal sinus rhythm 73/min right axis deviation T-wave inversion in the anterior and lateral leads with unifocal PVCs, this was unchanged from 2012 EKG. The patient remained in the ED for 2 hours with no more chest pain. She underwent a second EKG which remained stable with T-wave inversions. Called and discussed with Dr. Lind who recommended that the patient to be discharged and follow-up in the clinic in the morning as a schedule. ECG initial impression date: 04/28/17 ECG initial impression time: 19:25 - Avi Inquiry Pt receiving controlled substance: No Avi was queried for this patient: No Medical Decision Making Narrative: The patient left shoulder pain resolved upon arrival to the ED. she remained chest pain-free. She underwent 2 stable EKGs. She underwent 2 negative troponin. And a negative d-dimer. I discussed her findings with her family
--- NOTE | 2017-04-28 18:08 | ED_ITS ---
ED Disposition Clinical Impression: Atypical chest pain, CAD (coronary artery disease), Leucocytosis, Hypokalemia, Arthritis Disposition: Home, Self-Care Condition on Discharge: Fair Instructions: DI for Neck Pain Additional Instructions: 1- reassurance. 2- continue current medications. 3- see Dr. Lind in AM as scheduled. 4- see dr High for your shoulder pain. 5- to return if needed for any new sx. Referrals: Jonh Lind MD [Staff Physician] - Adrian Quintero MD [Primary Care Provider] - - Critical Care Critical Care Time: No Attestation: On , the high probability of a clinically significant, sudden or life threatening deterioration of the following system(s) required my full and direct attention, intervention and personal management. The time I documented below is in addition to time spent performing reported procedures but includes the following listed in this critical care notation. Medical Decision Making - Medical Records Medical records reviewed: Yes: I reviewed the patient's medical records. Vital Signs: 04/28/17 17:41 Temperature 98.2 F Temperature Source Oral Pulse Rate [Left Radial] 72 Respiratory Rate 18 Blood Pressure [Right Arm] 132/82 Blood Pressure Mean [Right Arm] 98 Blood Pressure Source [Right Arm] Automatic Cuff Blood Pressure Position [Right Arm] Sitting 02 Sat by Pulse Oximetry 100 Oxygen Delivery Method Room Air - Lab Data Lab results reviewed: Yes: I reviewed the patient's lab results. Lab Results 04/28/17 17:58: Sodium 129 L, Potassium 3.4 L, Chloride 92 L, Carbon Dioxide 28 , Anion Gap 12.4, BUN 14, Creatinine 0.92, Estimated Creat Clear 66, Estimated GFR 60, Est GFR ( Amer) 73, Glucose 111 H, Calcium 10.0, Total Bilirubin 0.5, AST 29, ALT 42, Alkaline Phosphatase 94, Total Creatine Kinase 63, CK-MB ( CK-2) 1.3 D, CK-MB (CK-2) Rel Index 2.1, Troponin I 0.03, Total Protein 8.5 H, Albumin 4.3, Globulin 4.2 H, Albumin/Globulin Ratio 1.0 L 04/28/17 17:58: WBC 14.7 H, RBC 5.69 H, Hgb 16.5 H, Hct 48.3 H, MCV 84.8, MCH 28.9, MCHC 34.1, RDW 12.5, Plt Count 452 H, MPV 7.4, Neut % (Auto) 68.3, Lymph % (Auto) 22.1, [place] % (Auto) 6.2, Eos % (Auto) 2.7, Baso % (Auto) 0.6, Neut # ( Auto) 10.0 H, Lymph # (Auto) 3.3, [place] # (Auto) 0.9, Eos # (Auto) 0.4, Baso # ( Auto) 0.1 04/28/17 17:58: D-Dimer 185 04/28/17 17:58: B-Natriuretic Peptide 22 04/28/17 17:58: Magnesium 2.3 H Result diagrams: 04/28/17 17:58 04/28/17 17:58 Orders (Tests/Meds): ED MEDICATIONS Discontinued Medications Generic Name Dose Route Start Last Admin Trade Name Freq PRN Reason Stop Dose Admin Potassium Chloride 40 meq 04/28/17 19:27 04/28/17 19:42 Klor-Con 20meq Tablet PO 04/28/17 19:28 40 meq ONCE ONE Administration ORDERS Category Date Time Status Troponin I Stat Lab 04/28/17 19:36 Received - Radiology Data #1 Image(s): Chest Image Reviewed: Yes I reviewed the patient's radiology image Preliminary Findings: Abnormal Chronic changes no acute findings. - ECG Data Tracing #2 Normal sinus rhythm 73/min right axis deviation T-wave inversion in the anterior and lateral leads with unifocal PVCs, this was unchanged from 2012 EKG. The patient remained in the ED for 2 hours with no more chest pain. She underwent a second
[2017-04-28 18:09] LABS: Basophils # 0.1 K/mm3 (0-0.2); Basophils % 0.6 % (0.1-2.0); Eosinophils # 0.4 K/mm3 (0.0-0.4); Eosinophils % 2.7 % (0.1-12.0); Hematocrit 48.3 % (37.0-47.0); Hemoglobin 16.5 g/dL (12.2-16.2); Lymphocytes # 3.3 K/mm3 (0.7-4.5); Lymphocytes % 22.1 K/mm3 (10-50); Mean Corpuscular HGB Conc 34.1 g/dL (31.8-35.4); Mean Corpuscular Hemoglobin 28.9 pg (27.0-31.2); Mean Corpuscular Volume 84.8 fl (81-99); Mean Platelet Volume 7.4 fl (7.4-10.4); Monocytes # 0.9 K/mm3 (0.1-1.0); Monocytes % 6.2 % (1.7-9.3); Neutrophils % 68.3 % (37.0-80.0); Platelet Count 452 K/mm3 (142-424); Red Blood Count 5.69 M/mm3 (4.20-5.40); Red Cell Distribution Width 12.5 % (11.5-17.5); White Blood Count 14.7 K/mm3 (4.8-10.8)
[2017-04-28 18:40] LABS: D-Dimer 185 (0-400)
[2017-04-28 18:44] LABS: Alanine Aminotransferase 42 U/L (12-78); Albumin Level 4.3 gm/dL (3.4-5.0); Alkaline Phosphatase 94 U/L (46-116); Anion Gap 12.4 mEq/L (5-15); Bilirubin,Total 0.5 mg/dL (0.2-1.0); Blood Urea Nitrogen 14 mg/dL (7-18); CKMB Relative Index 2.1 U/L (0-4.0); Carbon Dioxide 28 mmol/L (21.0-32.0); Chloride 92 mmol/L (98-107); Creatine Kinase 63 U/L (26-192); Creatine Kinase MB 1.3 mg/ml (0.0-3.6); Creatinine Clearance Estimated 66 mL/min (0-300); Creatinine,Serum 0.92 mg/dL (0.55-1.02); Estimated Glomerular Filt Rate 60 ml/min (>60); GFR (African American) 73 ML/MIN (>60); Globulin 4.2 gm/dl (1.3-3.2); Glucose 111 mg/dL (74-106); Sodium 129 mmol/L (136-145); Total Protein,Serum 8.5 gm/dL (6.4-8.2); Troponin I 0.03 ng/ml (0.00-0.06)
[2017-04-28 18:51] LABS: Aspartate Amino Transferase 29 U/L (15-37); Magnesium 2.3 mg/dL (1.4-2.2); Potassium 3.4 mmoL/L (3.5-5.1)
[2017-04-28 20:04] LABS: Troponin I 0.03 ng/ml (0.00-0.06)
== END 2017-04-28 20:26 | disposition home or self-care (01) ==
PROVIDERS: Emergency Provider Emergency Medicine; PCP Internal Medicine Adolescent Medicine
DX: R07.89 Other chest pain (principal); I25.10 Atherosclerotic heart disease of native coronary artery without angina pectoris; Z95.5 Presence of coronary angioplasty implant and graft; D72.829 Elevated white blood cell count, unspecified; E87.6 Hypokalemia; M19.90 Unspecified osteoarthritis, unspecified site
CPT/HCPCS: 36415; 71045; 80053; 82550; 82553; 83735; 83880; 84484; 85025; 85378; 93005; 99283

== ENCOUNTER → 2017-05-06 07:56 | Outpatient (CLI) | payer MEDICARE, SELFPAY ==
[2017-05-06 09:32] LABS: Anion Gap 9.4 mEq/L (5-15); Blood Urea Nitrogen 10 mg/dL (7-18); Carbon Dioxide 31 mmol/L (21.0-32.0); Chloride 98 mmol/L (98-107); Creatinine,Serum 0.78 mg/dL (0.55-1.02); Estimated Glomerular Filt Rate 73 ml/min (>60); GFR (African American) 88 ML/MIN (>60); Glucose 99 mg/dL (74-106); Potassium 3.4 mmoL/L (3.5-5.1); Sodium 135 mmol/L (136-145)
== END ==
PROVIDERS: PCP Internal Medicine Adolescent Medicine; Visit Provider Internal Medicine
DX: I21.4 Non-ST elevation (NSTEMI) myocardial infarction (principal); M19.90 Unspecified osteoarthritis, unspecified site; R07.89 Other chest pain; Z87.891 Personal history of nicotine dependence; E87.6 Hypokalemia; I25.118 Atherosclerotic heart disease of native coronary artery with other forms of angina pectoris; I10 Essential (primary) hypertension; D72.829 Elevated white blood cell count, unspecified
CPT/HCPCS: 36415; 80048

== ENCOUNTER 2017-05-07 10:11 | Outpatient (RCR) | payer MEDICARE, SELFPAY | END 2017-08-05 11:15 | disposition home or self-care (01) | LOC: PT 10:11 | PROVIDERS: PCP Internal Medicine Adolescent Medicine; Visit Provider Internal Medicine | DX: Z95.5 Presence of coronary angioplasty implant and graft (principal) | CPT/HCPCS: 93798 ==

== ENCOUNTER → 2017-07-02 08:42 | Outpatient (CLI) | payer MEDICARE, SELFPAY ==
--- NOTE | 2017-07-02 08:47 | AS_ITS ---
Renal Arterial Duplex Indications: 405.91 Unspecified renovascular hypertension. IMPRESSIONS 1. Elevated renal artery velocities on both sides. While this may in part be due to tortuous vessels, renal artery stenosis of less than 60% is also considered. Consider CT angiogram for confirmation 2. Bilateral tortuous renal arteries. Complete renal arterial duplex. Duplex scan and Doppler flow study including spectral analysis, color and valdes scale imaging. Height: Height: 162.6cm. Height: 64in. Weight: Weight: 80.3kg. Weight: 176.6lb. Body mass index: BMI: 30.4kg/m^2. Body surface area: BSA: 1.93m^2. Location: Vascular laboratory. Patient status: Outpatient. Tables: Arterial flow: + +-------+--------+ Location V sys V ed + +-------+--------+ Aorta - mid 105cm/s 15cm/s + +-------+--------+ Right renal - proximal 257cm/s 67cm/s + +-------+--------+ Right renal - mid 176cm/s 38.9cm/s + +-------+--------+ Right renal - distal 165cm/s 24.8cm/s + +-------+--------+ Right renal - Origin 293cm/s 62cm/s + +-------+--------+ Left renal - proximal 247cm/s 57.2cm/s + +-------+--------+ Left renal - mid 295cm/s 55.7cm/s + +-------+--------+ Left renal - distal 156cm/s 35.4cm/s + +-------+--------+ Left renal - Origin 229cm/s 52cm/s + +-------+--------+ Artery mapping: + +--------+ + + Location Diameter Observations Comment + +--------+ + + Abdominal aorta - mid 1.5mm Calcification Mildly elevated velocities are noted at the proximal and mid aorta, due to calcification. + +--------+ + + Renal anatomy: + +------+------+ Left Right + +------+------+ Long axis 10.1cm 10.6cm + +------+------+ Short axis 5.3cm 4.3cm + +------+------+ Velocity ratios: + +-----+ V sys + +-----+ Right renal/aortic 2.8 + +-----+ Left renal/aortic 2.8 + +-----+ (Report amended ) Electronically signed by: Rick Long [id number]
== END ==
PROVIDERS: PCP Internal Medicine Adolescent Medicine; Visit Provider Internal Medicine
DX: I10 Essential (primary) hypertension (principal)
CPT/HCPCS: 93976

== ENCOUNTER → 2017-07-20 09:52 | Outpatient (CLI) | payer MEDICARE, SELFPAY ==
--- NOTE | 2017-07-20 10:01 | XR_ITS ---
XR DEXA axial skeleton HISTORY: ITS.REASON: POST MENOPAUSAL ORDERING PHYSICIAN: Adrian Quintero MD PATIENT AGE: 71 years FINDINGS: The BMD measured at the Right femoral neck is 0.753 g/cm squared with a T score of -2.0. This is considered Osteopenic according to the World Health Organization criteria. Fracture risk is moderate. Treatment is advised. L1 L4 density has a T score of 1.5 which is within normal limits IMPRESSION: Osteopenia with moderate fracture risk. Treatment is recommended. Suggest follow-up exam July 2019
--- NOTE | 2017-07-20 10:02 | MM_ITS ---
MM Dig screening mamm BI w/CAD CAD Screening COMPARISON: Digital mammograms 01/25/2014 and 12/09/2012 INDICATION: There is been previous biopsy right breast. TECHNIQUE: Standard CC and MLO images were obtained. R2 CAD reviewed. FINDINGS: Minimal diffuse fibroglandular densities are seen in the central portions of both breasts. There are few benign-appearing calcifications in each breast as noted previously. There is no suspicious lesion and there are no suspicious microcalcifications. There are several small nodes in both axilla. IMPRESSION: Fibrofatty parenchyma with no suspicious lesion seen BI-RADS Category: 2 Benign Finding(s) RECOMMENDED FOLLOW-UP: 1YR - 1 YEAR FOLLOW-UP (A letter has been sent to the patient regarding results of the study.)
== END ==
PROVIDERS: PCP Internal Medicine Adolescent Medicine; Visit Provider Internal Medicine Adolescent Medicine
DX: Z78.0 Asymptomatic menopausal state (principal); Z12.31 Encounter for screening mammogram for malignant neoplasm of breast
CPT/HCPCS: 77067; 77080

== ENCOUNTER → 2018-04-14 11:53 | Outpatient (CLI) | payer MEDICARE, SELFPAY ==
[2018-04-14 14:34] LABS: Alanine Aminotransferase 25 U/L (12-78); Albumin Level 3.8 gm/dL (3.4-5.0); Albumin/Globulin Ratio 1.2 (1.1-1.8); Alkaline Phosphatase 64 U/L (46-116); Anion Gap 11.2 mEq/L (5-15); Aspartate Amino Transferase 14 U/L (15-37); Bilirubin,Total 0.4 mg/dL (0.2-1.0); Blood Urea Nitrogen 13 mg/dL (7-18); Calcium 9.4 mg/dL (8.5-10.1); Carbon Dioxide 30 mmol/L (21.0-32.0); Chloride 97 mmol/L (98-107); Chol/HDL Ratio 4.1 (1-3.5); Cholesterol 168 mg/dL (140-200); Creatinine,Serum 0.88 mg/dL (0.55-1.02); Estimated Glomerular Filt Rate 63 ml/min (>60); GFR (African American) 76 ML/MIN (>60); Globulin 3.2 gm/dl (1.3-3.2); Glucose 95 mg/dL (74-106); HDL Cholesterol 41 mg/dL (29-89); LDL Cholesterol 85 mg/dL (0-130); Potassium 4.2 mmoL/L (3.5-5.1); Sodium 134 mmol/L (136-145); Thyroid Stimulating Hormone 3.36 uIU/ml (0.358-3.740); Triglycerides 212 mg/dL (30-200); VLDL Cholesterol 42 mg/dL (0-40)
== END ==
PROVIDERS: Visit Provider Nurse Practitioner Family
DX: Z00.00 Encounter for general adult medical examination without abnormal findings (principal); I10 Essential (primary) hypertension; I25.10 Atherosclerotic heart disease of native coronary artery without angina pectoris; E78.2 Mixed hyperlipidemia; E03.9 Hypothyroidism, unspecified
CPT/HCPCS: 36415; 80053; 80061; 84443

== ENCOUNTER 2020-03-08 13:16 | Emergency (ER) | payer MEDICARE, SELFPAY ==
--- NOTE | 2020-03-08 13:12 | ECG_ITS ---
APPROVED REPORT Exam: Resting ECG HR:58 bpm ECG Measurements Heart Rate 58 AXES MI 206 P 22 QRSd 74 QRS 22 QT 436 T 91 QTc 428 Conclusion Sinus bradycardia T wave abnormality, consider lateral ischemia Abnormal ECG Electronically signed by : Adrian Quintero, 03/09/2020 10:18:17
[2020-03-08 13:16] VITALS: BP 110/43; PULSE 58; RESP 16; TEMP 37; O2SAT 93; BMI 25.7
--- NOTE | 2020-03-08 13:28 | [facility].EDGENADL ---
ED Disposition Clinical Impression: Near syncope Vomiting Qualifiers: Vomiting type: unspecified Vomiting Intractability: non-intractable Nausea presence: with nausea Qualified Code(s): R11.2 - Nausea with vomiting, unspecified Disposition: Home, Self-Care Condition on Discharge: Good Instructions: DI for Syncope in Adults (Fainting), DI for Vomiting -- Adult Additional Instructions: See Dr. Dang within 1 week, call for appointment. Return to the emergency department if symptoms return. Referrals: PCP,No [Non-Staff] - - Critical Care Critical Care Time: No Attestation: On , the high probability of a clinically significant, sudden or life threatening deterioration of the following system(s) required my full and direct attention, intervention and personal management. The time I documented below is in addition to time spent performing reported procedures but includes the following listed in this critical care notation. Medical Decision Making - Avi Inquiry Pt receiving controlled substance: No Vital Signs: 03/08/20 13:16 03/08/20 14:07 03/08/20 15:12 Temperature 98.6 F Temperature Source Oral Pulse Rate [Right Radial] 58 L 66 57 L Respiratory Rate 16 Blood Pressure [Right Arm] 110/43 L 125/57 L 139/57 L Blood Pressure Mean [Right Arm] 65 79 84 Blood Pressure Source [Right Arm] Automatic Cuff Automatic Cuff Automatic Cuff Blood Pressure Position [Right Arm] Sitting Sitting Sitting 02 Sat by Pulse Oximetry 93 L 100 92 L Oxygen Delivery Method Room Air Room Air - Lab Data Lab Results 03/08/20 13:15: WBC 10.8, RBC 4.75, Hgb 13.7, Hct 41.4, MCV 87.3, MCH 28.8, MCHC 33.0, RDW 13.1, Plt Count 434 H, MPV 8.6, Neut % (Auto) 61.9, Lymph % (Auto) 28.2, [place] % (Auto) 5.0, Eos % (Auto) 4.3, Baso % (Auto) 0.6, Neut # (Auto) 6.7, Lymph # (Auto) 3.1, [place] # (Auto) 0.5, Eos # (Auto) 0.5 H, Baso # (Auto) 0.1 03/08/20 13:15: Sodium 132 L, Potassium 3.8, Chloride 98, Carbon Dioxide 28, Anion Gap 9.8, BUN 11, Creatinine 0.90, Estimated Creat Clear 52, Estimated GFR 61, Est GFR ( Amer) 74, Glucose 143 H, Calcium 9.3, Total Bilirubin 0.5, AST 27, ALT 16, Alkaline Phosphatase 57, Troponin I < 0.01, Total Protein 6.6, Albumin 3.8, Globulin 2.8, Albumin/Globulin Ratio 1.4 Result diagrams: 03/08/20 13:15 03/08/20 13:15 Orders (Tests/Meds): ORDERS Category Date Time Status Troponin I Q3H Lab 03/08/20 16:45 Ordered Troponin I Q3H Lab 03/08/20 19:45 Ordered - ECG Data Tracing #1 EKG interpreted by Khris Nash MD: Rhythm: sinus bradycardia Rate: 58 [place]: normal Ectopy: none Conduction: normal ST Segment Changes: Nonspecific T Wave Changes: Nonspecific Q Waves: none No evidence of acute ischemia or injury Baseline artifact and wander present, but I consider the EKG adequate for accurate interpretation. - Physician Consults Physician Consulted: [place] Time: 14:38 Reason -: Pt condition Comment/Response: He feels patient can be discharged. Can follow-up in their office within 1 week. Medical Decision Narrative: 2:30 PM: Discussed disposition with patient and . I discussed admission for observation for cardiac monitoring overnight. She says she will just as soon go home and does not want to be admitted to the hospital. says he is comfortable taking her home. Call placed to Dr. Dang. 3:58 PM: Nurse reports patient ambulated well in the emergency department. General Adult HPI - General Stated complaint: Vomiting, dizziness Time Seen by Provider: 03/08/20 14:23 - History of Present Illness HPI narrative: The patient is eating lunch with her at a restaurant when she began complaining of nausea and began vomiting. She then slumped over against him twice after complaining that she felt like she was going to pass out. He says she did not completely lose consciousness but came close to times. No diarrhea. Both she and he states that at no time
--- NOTE | 2020-03-08 13:32 | XR_ITS ---
PROCEDURE: XR CHEST 2V CLINICAL HISTORY: dizziness Dizziness, smoker COMPARISON: No exams were available for comparison FINDINGS: Borderline cardiomegaly without failure. Coronary artery stents are present The lungs are clear without infiltrates, suspicious nodules, or pleural effusions. No acute bony abnormalities. IMPRESSION: No acute findings. Dictated by: Rick Long MD 03/08/2020 15:39 Rick Long MD in [place] 03/08/2020 15:39
[2020-03-08 13:46] LABS: Basophils # 0.1 K/mm3 (0-0.2); Basophils % 0.6 % (0.1-2.0); Eosinophils # 0.5 K/mm3 (0.0-0.4); Eosinophils % 4.3 % (0.1-12.0); Hematocrit 41.4 % (37.0-47.0); Hemoglobin 13.7 g/dL (12.2-16.2); Lymphocytes # 3.1 K/mm3 (0.7-4.5); Lymphocytes % 28.2 % (10-50); Mean Corpuscular Hemoglobin 28.8 pg (27.0-31.2); Mean Corpuscular Volume 87.3 fl (81-99); Mean Platelet Volume 8.6 fl (7.4-10.4); Monocytes # 0.5 K/mm3 (0.1-1.0); Neutrophils # 6.7 K/mm3 (1.8-7.8); Neutrophils % 61.9 % (37.0-80.0); Platelet Count 434 K/mm3 (142-424); Red Blood Count 4.75 M/mm3 (4.20-5.40); Red Cell Distribution Width 13.1 % (11.5-17.5); White Blood Count 10.8 K/mm3 (4.8-10.8)
[2020-03-08 13:47] LABS: Chloride 98 mmol/L (98-107); Potassium 3.8 mmoL/L (3.5-5.1); Sodium 132 mmol/L (136-145)
[2020-03-08 13:49] LABS: Blood Urea Nitrogen 11 mg/dl (7-17); Creatinine Clearance Estimated 52 mL/min (50-200); Estimated Glomerular Filt Rate 61 ml/min (>60); GFR (African American) 74 ML/MIN (>60)
[2020-03-08 13:50] LABS: Alanine Aminotransferase 16 U/L (12-78); Albumin Level 3.8 g/dl (3.5-5.0); Albumin/Globulin Ratio 1.4 (1.1-1.8); Alkaline Phosphatase 57 U/L (38-126); Anion Gap 9.8 mEq/L (5-15); Aspartate Amino Transferase 27 U/L (14-36); Bilirubin,Total 0.5 mg/dl (0.2-1.3); Calcium 9.3 mg/dl (8.4-10.2); Carbon Dioxide 28 mmol/L (22.0-30.0); Globulin 2.8 g/dL (1.3-3.2); Glucose 143 mg/dl (74-100); Total Protein,Serum 6.6 g/dl (6.3-8.2)
--- NOTE | 2020-03-08 14:03 | PC.NURSE ---
pt to rad
[2020-03-08 14:07] VITALS: BP 125/57; PULSE 66; O2SAT 100
--- NOTE | 2020-03-08 14:07 | PC.NURSE ---
pt returned from rad
[2020-03-08 14:09] LABS: Troponin I < 0.01 ng/ml (0.00-0.034)
--- NOTE | 2020-03-08 14:34 | PC.NURSE ---
Dr Nash speaking with Dr Dang at this time.
[2020-03-08 15:12] VITALS: BP 139/57; PULSE 57; O2SAT 92
[2020-03-08 15:32] VITALS: BP 132/55; PULSE 61; RESP 16; TEMP 37; O2SAT 97
== END 2020-03-08 15:35 | disposition home or self-care (01) ==
PROVIDERS: Emergency Provider Emergency Medicine; PCP Internal Medicine Adolescent Medicine
DX: R55 Syncope and collapse (principal); I25.10 Atherosclerotic heart disease of native coronary artery without angina pectoris; I10 Essential (primary) hypertension; E78.5 Hyperlipidemia, unspecified; K21.9 Gastro-esophageal reflux disease without esophagitis; E03.9 Hypothyroidism, unspecified; Z79.899 Other long term (current) drug therapy
CPT/HCPCS: 71046; 80053; 84484; 85025; 93005; 99283

== ENCOUNTER → 2021-01-23 16:44 | Outpatient (CLI) | payer MEDICARE, SELFPAY ==
[2021-01-23 17:36] LABS: Anion Gap 13.1 mEq/L (5-15); Blood Urea Nitrogen 9 mg/dl (7-17); Calcium 9.3 mg/dl (8.4-10.2); Carbon Dioxide 30 mmol/L (22.0-30.0); Chloride 89 mmol/L (98-107); Estimated Glomerular Filt Rate 81 ml/min (>60); GFR (African American) 98 ML/MIN (>60); Glucose 88 mg/dl (74-100); Potassium 4.1 mmoL/L (3.5-5.1); Sodium 128 mmol/L (136-145)
[2021-01-23 18:05] LABS: Thyroid Stimulating Hormone 3.06 uIU/mL (0.465-4.68)
[2021-01-23 19:13] LABS: 25-OH Vitamin D, Total 61.4 ng/mL (30-100)
== END ==
PROVIDERS: Visit Provider Nurse Practitioner Family
DX: I10 Essential (primary) hypertension (principal); E03.9 Hypothyroidism, unspecified; E55.9 Vitamin D deficiency, unspecified
CPT/HCPCS: 80048; 82306; 84443

== ENCOUNTER → 2022-10-18 09:44 | Outpatient (CLI) | payer MEDICARE, SELFPAY ==
[2022-10-18 10:47] LABS: Alanine Aminotransferase 24 U/L (12-78); Albumin Level 3.9 g/dl (3.5-5.0); Albumin/Globulin Ratio 1.5 (1.1-1.8); Alkaline Phosphatase 70 U/L (38-126); Anion Gap 8.3 mEq/L (5-15); Aspartate Amino Transferase 24 U/L (14-36); Bilirubin,Total 0.4 mg/dl (0.2-1.3); Blood Urea Nitrogen 10 mg/dl (7-17); Calcium 9.1 mg/dl (8.4-10.2); Carbon Dioxide 34 mmol/L (22.0-30.0); Chloride 92 mmol/L (98-107); Chol/HDL Ratio 2.8 (1-3.5); Cholesterol 135 mg/dl (140-200); Estimated Glomerular Filt Rate 61 ml/min (>60); GFR (African American) 73 ML/MIN (>60); Globulin 2.6 g/dL (1.3-3.2); Glucose 112 mg/dl (74-100); HDL Cholesterol 49 mg/dl (40-60); Potassium 3.3 mmoL/L (3.5-5.1); Sodium 131 mmol/L (136-145); Total Protein,Serum 6.5 g/dl (6.3-8.2); Triglycerides 153 mg/dl (30-150); VLDL Cholesterol 31 mg/dL (0-40)
[2022-10-18 10:59] LABS: Direct LDL Cholesterol 69.04 mg/dL (100-129)
[2022-10-18 11:04] LABS: 25-OH Vitamin D, Total 76.2 ng/mL (30-100)
[2022-10-18 11:17] LABS: Thyroid Stimulating Hormone 1.65 uIU/mL (0.465-4.68)
== END ==
PROVIDERS: PCP Nurse Practitioner Family; Visit Provider Nurse Practitioner Family
DX: I10 Essential (primary) hypertension (principal); M85.80 Other specified disorders of bone density and structure, unspecified site; E03.9 Hypothyroidism, unspecified; E55.9 Vitamin D deficiency, unspecified
CPT/HCPCS: 36415; 80053; 80061; 82306; 84443

== ENCOUNTER 2025-01-21 13:10 | Outpatient (CLI) | payer MEDICARE, SELFPAY | END 2025-01-21 23:59 | LOC: LAB.DROPOF 01-23 13:14 | PROVIDERS: PCP Nurse Practitioner Family; Visit Provider Student in an Organized Health Care Education/Training Program | DX: N39.0 Urinary tract infection, site not specified (principal) | CPT/HCPCS: 87086 ==